=== PATIENT | male | born 1975 | race Caucasian/White ===

== ENCOUNTER → 2018-01-06 | Day surgery (SDC) | payer OTHER ==
[~2018-01-06] MED LIST: METHYLPREDNISOLONE ACETATE INJ 40 MG/1 ML ML ONE
--- NOTE | 2018-01-06 15:07 | RADIOLOGY REPORT (SQ) ---
EXAM DESCRIPTION: INJECT/ASPIR WRIST/ELB/ANKLE; FLUORO/NEEDLE PLACEMENT COMPLETED DATE/TIME: 01/06/2018 2:41 pm REASON FOR STUDY: RIGHT AC OSTEOARTHRITIS COMPARISON: None. FLUOROSCOPY TIME: 10 seconds 1 digital radiographic image saved to PACS. LIMITATIONS: None. PROCEDURE: SITE OF INJECTION: Right acromioclavicular joint LOCALIZING CONTRAST TYPE AND DOSE: 0.5 mL of Isovue-300 was injected to confirm intra-articular needl e placement MEDICATION TYPE AND DOSE: 1.5 mL of a mixture of 40 mg Depo-Medrol and 1 mL of 0.5% bupivacaine injec sweta into the right acromioclavicular joint Using local anesthesia and sterile technique with fluoroscopic guidance, a 25 gauge needle was advanc ed into the joint. Iodinated contrast was injected to verify intraarticular placement. This was foll owed by therapeutic injection of the indicated medications. The needle was removed. There were no i mmediate complications. Preprocedure pain level: 3/10. Postprocedure pain level: 2/10. IMPRESSION: THERAPEUTIC INJECTION OF THE RIGHT ACROMIOCLAVICULAR JOINT ABOVE. COMMENT: Patient medication list reviewed: Yes- Quality ID# [id number]:Eligible professional attests to doc umenting in the medical record they obtained, updated, or reviewed the patient's current medications. . Quality ID 145: Final reports for procedures using fluoroscopy that document radiation exposure marlo deisy, or exposure time and number of fluorographic images (if radiation exposure indices are not avail able) TECHNICAL DOCUMENTATION: JOB ID: [id number] [employer]- All Rights Reserved Reading location - IP/workstation name: [facility]
--- NOTE | 2018-01-06 15:07 | RADIOLOGY REPORT (SQ) ---
EXAM DESCRIPTION: INJECT/ASPIR WRIST/ELB/ANKLE; FLUORO/NEEDLE PLACEMENT COMPLETED DATE/TIME: 01/06/2018 2:41 pm REASON FOR STUDY: RIGHT AC OSTEOARTHRITIS COMPARISON: None. FLUOROSCOPY TIME: 10 seconds 1 digital radiographic image saved to PACS. LIMITATIONS: None. PROCEDURE: SITE OF INJECTION: Right acromioclavicular joint LOCALIZING CONTRAST TYPE AND DOSE: 0.5 mL of Isovue-300 was injected to confirm intra-articular needl e placement MEDICATION TYPE AND DOSE: 1.5 mL of a mixture of 40 mg Depo-Medrol and 1 mL of 0.5% bupivacaine injec sweta into the right acromioclavicular joint Using local anesthesia and sterile technique with fluoroscopic guidance, a 25 gauge needle was advanc ed into the joint. Iodinated contrast was injected to verify intraarticular placement. This was foll owed by therapeutic injection of the indicated medications. The needle was removed. There were no i mmediate complications. Preprocedure pain level: 3/10. Postprocedure pain level: 2/10. IMPRESSION: THERAPEUTIC INJECTION OF THE RIGHT ACROMIOCLAVICULAR JOINT ABOVE. COMMENT: Patient medication list reviewed: Yes- Quality ID# [id number]:Eligible professional attests to doc umenting in the medical record they obtained, updated, or reviewed the patient's current medications. . Quality ID 145: Final reports for procedures using fluoroscopy that document radiation exposure marlo deisy, or exposure time and number of fluorographic images (if radiation exposure indices are not avail able) TECHNICAL DOCUMENTATION: JOB ID: [id number] [employer]- All Rights Reserved Reading location - IP/workstation name: [facility]-RR
== END ==
LOC: RAD 14:00
PROVIDERS: ATTEND Physician Assistant Medical
DX: M19.011 Primary osteoarthritis, right shoulder (principal)
CPT/HCPCS: 20605; 77002; J1020